=== PATIENT | female | born 1975 | race Caucasian/White ===

== ENCOUNTER 2020-04-05 12:19 | Inpatient (IN) | payer BC ==
--- NOTE | 2020-04-05 12:55 | ED ---
Abdominal Pain HPI - General Chief Complaint: Abdominal Pain Stated Complaint: blood in stool, abd pain Source: patient Mode of arrival: ambulatory Limitations: no limitations - History of Present Illness Initial Comments: 45-year-old female with no past medical history who presents emergency Department with reported bright red blood per rectum. Patient states the symptoms started yesterday morning. She has had upwards of 10 episodes of bloody stools. No history of similar in the past. She will get intense cramping and shortly afterward half a bowel movement which consists only of blood. She denies any rectal pain. Only admits to the lower crampy abdominal pain. No history of colonoscopy or EGD. She is not on any blood thinners. Denies eating any tainted foods. No psychotic systemic symptoms. No recent travel. Denies any fevers or chills. No nausea or vomiting. Denies hematemesis. No history of peptic ulcer disease. No NSAID use. The patient does not drink alcohol. Denies dysuria, hematuria or difficulty voiding. No back or flank pain. No other alleviating dictating modifying factors - Related Data Home Medications Medication Instructions Recorded Confirmed Minivelle 0.1mg Patch 1 patch TRANSDERM Q72H 04/05/20 04/05/20 Multivitamin With Caffine 1 tab PO DAILY 04/05/20 04/05/20 Allergies Allergy/AdvReac Type Severity Reaction Status Date / Time No Known Allergies Allergy Verified 04/05/20 15:02 Review of Systems ROS Statement: Those systems with pertinent positive or pertinent negative responses have been documented in the HPI. ROS Other: All systems not noted in ROS Statement are negative. Past Medical History Past Medical History: No Reported History History of Any Multi-Drug Resistant Organisms: None Reported Past Surgical History: Appendectomy, Hysterectomy Past Psychological History: No Psychological Hx Reported Smoking Status: Current every day smoker Past Alcohol Use History: None Reported Past Drug Use History: None Reported - Past Family History Sister(s) Family Medical History: Coronary Artery Disease (CAD) Additional Family Medical History / Comment(s): heart valve replace, 2 yrs ago General Exam Limitations: no limitations General appearance: alert, in no apparent distress Head exam: Present: atraumatic, normocephalic, normal inspection Eye exam: Present: normal appearance, PERRL, EOMI. Absent: scleral icterus, conjunctival injection, periorbital swelling ENT exam: Present: normal exam, mucous membranes moist Neck exam: Present: normal inspection. Absent: tenderness, meningismus, lymphadenopathy Respiratory exam: Present: normal lung sounds bilaterally. Absent: respiratory distress, wheezes, rales, rhonchi, stridor Cardiovascular Exam: Present: regular rate, normal rhythm, normal heart sounds. Absent: systolic murmur, diastolic murmur, rubs, gallop, clicks GI/Abdominal exam: Present: soft, tenderness (Bilateral lower abdominal quadrants), normal bowel sounds. Absent: distended, guarding, rebound, rigid Rectal exam: Present: normal inspection, normal rectal tone, heme (+) stool, other (Few flecks of bight bloody stool) Extremities exam: Present: normal inspection, full ROM, normal capillary refill. Absent: tenderness, pedal edema, joint swelling, calf tenderness Back exam: Present: normal inspection Neurological exam: Present: alert, oriented X3, CN II-XII intact Psychiatric exam: Present: normal affect, normal mood Skin exam: Present: warm, dry, intact, normal color. Absent: rash Course Vital Signs 04/05/20 04/05/20 04/05/20 12:23 13:00 13:38 Temperature 98.1 F Pulse Rate 71 70 66 Respiratory 18 16 16 Rate Blood Pressure 130/84 130/89 129/77 O2 Sat by Pulse 98 98 98 Oximetry 04/05/20 15:00 Temperature Pulse Rate 68 Respiratory 16 Rate Blood Pressure 129/77 O2 Sat by Pulse 98 Oximetry Medical Decision Making - Medical Decision Making Upon arrival the patient is placed into room 10. A thorough history and physical exam was performed. Patient is placed on continuous pulse ox and cardiac monitoring. Rectal exam is performed which does demonstrate small flecks of bright red blood. I recommended laboratory studies and a CT of the patient's abdomen and pelvis because of reported abdominal pain. Lab studies are remarkable for a hemoglobin of 13.2. Patient remains hemodynamically stable. Urinalysis is positive for small leukocyte esterase with rare bacteria. She is fecal occult blood positive. CT of the patient's abdomen and pelvis does demonstrates nonspecific moderate infectious/inflammatory colitis involving the mid to lower descending colon and proximal sigmoid colon. Blood culture was obtained. The patient was given a dose of Zosyn. I did recommend hospital admission orders from the patient's troponins for which she did agree. I did call discuss the case with Dr. magana accepted admission. I will place GI and consult. Patient remained in stable condition and was transported to the floor - Lab Data Result diagrams: 04/05/20 18:30 04/05/20 13:07 Lab Results 04/05/20 04/05/20 04/05/20 Range/Units 12:55 13:07 13:07 WBC (3.8-10.6) k/uL RBC (3.80-5.40) m/uL Hgb (11.4-16.0) gm/dL Hct (34.0-46.0) % MCV (80.0-100.0) fL MCH (25.0-35.0) pg MCHC (31.0-37.0) g/dL RDW (11.5-15.5) % Plt Count (150-450) k/uL Neutrophils % % Lymphocytes % % Monocytes % % Eosinophils % % Basophils % % Neutrophils # (1.3-7.7) k/uL Lymphocytes # (1.0-4.8) k/uL Monocytes # (0-1.0) k/uL Eosinophils # (0-0.7) k/uL Basophils # (0-0.2) k/uL PT 9.7 (9.0-12.0) sec INR 0.9 (<1.2) APTT 26.4 (22.0-30.0) sec Sodium 140 (137-145) mmol/L Potassium 4.1 (3.5-5.1) mmol/L Chloride 111 H (98-107) mmol/L Carbon Dioxide 24 (22-30) mmol/L Anion Gap 5 mmol/L BUN 9 (7-17) mg/dL Creatinine 0.62 (0.52-1.04) mg/dL Est GFR (CKD-EPI)AfAm >90 (>60 ml/min/1.73 sqM) Est GFR (CKD-EPI)NonAf >90 (>60 ml/min/1.73 sqM) Glucose 92 (74-99) mg/dL Plasma Lactic Acid Monty (0.7-2.0) mmol/L Calcium 9.5 (8.4-10.2) mg/dL Total Bilirubin 0.4 (0.2-1.3) mg/dL AST 28 (14-36) U/L ALT 20 (4-34) U/L Alkaline Phosphatase 61 (38-126) U/L Total Protein 7.0 (6.3-8.2) g/dL Albumin 4.4 (3.5-5.0) g/dL Lipase 84 (23-300) U/L Urine Color Yellow Urine Appearance Cloudy H (Clear) Urine pH 5.5 (5.0-8.0) Ur Specific [place] 1.027 (1.001-1.035) Urine Protein Trace H (Negative) Urine Glucose (UA) Negative (Negative) Urine Ketones Negative (Negative) Urine Blood Trace H (Negative) Urine Nitrite Negative (Negative) Urine Bilirubin Negative (Negative) Urine Urobilinogen <2.0 (<2.0) mg/dL Ur Leukocyte Esterase Small H (Negative) Urine RBC 4 (0-5) /hpf Urine WBC 3 (0-5) /hpf Ur Squamous Epith Cells 4 (0-4) /hpf Urine Bacteria Rare H (None) /hpf Urine Mucus Many H (None) /hpf Stool Occult Blood (Negative) Blood Type Blood Type Confirm Blood Type Recheck Bld Type Recheck Status Antibody Screen Spec Expiration Date 04/05/20 04/05/20 04/05/20 Range/Units 13:07 13:07 13:20 WBC 8.4 (3.8-10.6) k/uL RBC 4.26 (3.80-5.40) m/uL Hgb 13.2 (11.4-16.0) gm/dL Hct 39.8 (34.0-46.0) % MCV 93.4 (80.0-100.0) fL MCH 30.9 (25.0-35.0) pg MCHC 33.1 (31.0-37.0) g/dL RDW 12.4 (11.5-15.5) % Plt Count 327 (150-450) k/uL Neutrophils % 51 % Lymphocytes % 39 % Monocytes % 6 % Eosinophils % 2 % Basophils % 1 % Neutrophils # 4.3 (1.3-7.7) k/uL Lymphocytes # 3.3 (1.0-4.8) k/uL Monocytes # 0.5 (0-1.0) k/uL Eosinophils # 0.2 (0-0.7) k/uL Basophils # 0.1 (0-0.2) k/uL PT (9.0-12.0) sec INR (<1.2) APTT (22.0-30.0) sec Sodium (137-145) mmol/L Potassium (3.5-5.1) mmol/L Chloride (98-107) mmol/L Carbon Dioxide (22-30) mmol/L Anion Gap mmol/L BUN (7-17) mg/dL Creatinine (0.52-1.04) mg/dL Est GFR (CKD-EPI)AfAm (>60 ml/min/1.73 sqM) Est GFR (CKD-EPI)NonAf (>60 ml/min/1.73 sqM) Glucose (74-99) mg/dL Plasma Lactic Acid Monty 0.6 L (0.7-2.0) mmol/L Calcium (8.4-10.2) mg/dL Total Bilirubin (0.2-1.3) mg/dL AST (14-36) U/L ALT (4-34) U/L Alkaline Phosphatase (38-126) U/L Total Protein (6.3-8.2) g/dL Albumin (3.5-5.0) g/dL Lipase (23-300) U/L Urine Color Urine Appearance (Clear) Urine pH (5.0-8.0) Ur Specific [place] (1.001-1.035) Urine Protein (Negative) Urine Glucose (UA) (Negative) Urine Ketones (Negative) Urine Blood (Negative) Urine Nitrite (Negative) Urine Bilirubin (Negative) Urine Urobilinogen (<2.0) mg/dL Ur Leukocyte Esterase (Negative) Urine RBC (0-5) /hpf Urine WBC (0-5) /hpf Ur Squamous Epith Cells (0-4) /hpf Urine Bacteria (None) /hpf Urine Mucus (None) /hpf Stool Occult Blood (Negative) Blood Type O Positive Blood Type Confirm Blood Type Recheck No Previous Record Bld Type Recheck Status CABO Indicated Antibody Screen NEGATIVE Spec Expiration Date 04/08/2020230604/05/20 04/05/20 Range/Units 13:20 14:21 WBC (3.8-10.6) k/uL RBC (3.80-5.40) m/uL Hgb (11.4-16.0) gm/dL Hct (34.0-46.0) % MCV (80.0-100.0) fL MCH (25.0-35.0) pg MCHC (31.0-37.0) g/dL RDW (11.5-15.5) % Plt Count (150-450) k/uL Neutrophils % % Lymphocytes % % Monocytes % % Eosinophils % % Basophils % % Neutrophils # (1.3-7.7) k/uL Lymphocytes # (1.0-4.8) k/uL Monocytes # (0-1.0) k/uL Eosinophils # (0-0.7) k/uL Basophils # (0-0.2) k/uL PT (9.0-12.0) sec INR (<1.2) APTT (22.0-30.0) sec Sodium (137-145) mmol/L Potassium (3.5-5.1) mmol/L Chloride (98-107) mmol/L Carbon Dioxide (22-30) mmol/L Anion Gap mmol/L BUN (7-17) mg/dL Creatinine (0.52-1.04) mg/dL Est GFR (CKD-EPI)AfAm (>60 ml/min/1.73 sqM) Est GFR (CKD-EPI)NonAf (>60 ml/min/1.73 sqM) Glucose (74-99) mg/dL Plasma Lactic Acid Monty (0.7-2.0) mmol/L Calcium (8.4-10.2) mg/dL Total Bilirubin (0.2-1.3) mg/dL AST (14-36) U/L ALT (4-34) U/L Alkaline Phosphatase (38-126) U/L Total Protein (6.3-8.2) g/dL Albumin (3.5-5.0) g/dL Lipase (23-300) U/L Urine Color Urine Appearance (Clear) Urine pH (5.0-8.0) Ur Specific [place] (1.001-1.035) Urine Protein (Negative) Urine Glucose (UA) (Negative) Urine Ketones (Negative) Urine Blood (Negative) Urine Nitrite (Negative) Urine Bilirubin (Negative) Urine Urobilinogen (<2.0) mg/dL Ur Leukocyte Esterase (Negative) Urine RBC (0-5) /hpf Urine WBC (0-5) /hpf Ur Squamous Epith Cells (0-4) /hpf Urine Bacteria (None) /hpf Urine Mucus (None) /hpf Stool Occult Blood Positive H (Negative) Blood Type Blood Type Confirm O Positive Blood Type Recheck Bld Type Recheck Status Antibody Screen Spec Expiration Date - EKG Data EKG Comments: EKG demonstrates normal sinus rhythm with ventricular rate of 68. IA interval 130. QRS is 88. QTC 418. No acute ST segment depressions concerning for ischemic changes Disposition Clinical Impression: Hematochezia, Colitis Disposition: ADMITTED IP TO THIS HOSP Condition: Stable Is patient prescribed a controlled substance at d/c from ED?: No Decision to Admit Reason: Admit from EC Decision Date: 04/05/20 Decision Time: 14:54
[2020-04-05 13:26] LABS: Basophils # (A) 0.1 k/uL (0-0.2); Basophils % (A) 1 %; Eosinophils # (A) 0.2 k/uL (0-0.7); Eosinophils % (A) 2 %; HCT 39.8 % (34.0-46.0); HGB 13.2 gm/dL (11.4-16.0); Lymphocytes # (A) 3.3 k/uL (1.0-4.8); Lymphocytes % (A) 39 %; MCH 30.9 pg (25.0-35.0); MCHC 33.1 g/dL (31.0-37.0); MCV 93.4 fL (80.0-100.0); Mean Platelet Volume 7.3; Monocytes # (A) 0.5 k/uL (0-1.0); Monocytes % (A) 6 %; Neutrophils # (A) 4.3 k/uL (1.3-7.7); Neutrophils % (A) 51 %; Platelet Count 327 k/uL (150-450); RBC 4.26 m/uL (3.80-5.40); RDW 12.4 % (11.5-15.5); WBC 8.4 k/uL (3.8-10.6)
[2020-04-05 13:26] LABS: INR 0.9 (<1.2); Partial Thromboplastin Time 26.4 sec (22.0-30.0); Prothrombin Time 9.7 sec (9.0-12.0)
[2020-04-05 13:32] LABS: ALT 20 U/L (4-34); AST 28 U/L (14-36); African American GFR (CKD) >90 (>60 ml/min/1.73 sqM); Albumin 4.4 g/dL (3.5-5.0); Alkaline Phosphatase 61 U/L (38-126); Anion Gap 5 mmol/L; Blood Urea Nitrogen 9 mg/dL (7-17); Calcium 9.5 mg/dL (8.4-10.2); Carbon Dioxide 24 mmol/L (22-30); Chloride 111 mmol/L (98-107); Glucose 92 mg/dL (74-99); Non-African American GFR(CKD) >90 (>60 ml/min/1.73 sqM); Potassium 4.1 mmol/L (3.5-5.1); Sodium 140 mmol/L (137-145); Total Bilirubin 0.4 mg/dL (0.2-1.3)
--- NOTE | 2020-04-05 14:12 | CT ---
EXAMINATION TYPE: CT abdomen pelvis w con DATE OF EXAM: 04/05/2020 COMPARISON: NONE HISTORY: 45-year-old female Pelvic pain with rectal bleeding. TECHNIQUE: Contiguous axial scanning of the abdomen and pelvis following administration of 100 ml Iso nayla 300 IV contrast. Delayed images through the kidneys and coronal/sagittal reconstructions perform ed. CT DLP: 1052 mGycm Automated exposure control for dose reduction was used. FINDINGS: LUNG BASES: No significant abnormality is appreciated. LIVER/GB: Liver borderline enlarged measuring 17.4 cm. No focal lesion or biliary ductal dilatation. Portal venous system is patent. Gallbladder within normal limits. PANCREAS: No significant abnormality is seen. SPLEEN: No significant abnormality is seen. ADRENALS: No significant abnormality is seen. KIDNEYS: Cortical cysts in the right kidney measuring up to 1.7 cm. Some scattered hypodense lesions in both kidneys are too small fractured CT characterization, likely cysts. Symmetric uptake and excre tion of contrast from both kidneys. LYMPH NODES: No significant abnormality is seen BOWEL: Appendix cannot be visualized. No secondary findings of acute appendicitis. Mild stool burden . Moderately long segment of inflamed colon involving the mid to lower descending colon and proximal sigmoid colon with wall thickening and pericolonic fat stranding, greatest along the proximal sigmoid , or further coronal images 36 through 50. No significant diverticular change. PELVIS: Bladder is collapsed. Uterus surgically absent. Neither ovary clearly identified. There is mi ld pelvic free fluid. No pelvic lymphadenopathy seen. BONES: Right L5 hemisacralization with degenerative disc disease at L4-L5 characterized by large disc . Ligamentum flavum thickening also noted at this level. There is mild bilateral neural foraminal elena nosis here. IMPRESSION: 1. NONSPECIFIC MODERATE INFECTIOUS/INFLAMMATORY COLITIS INVOLVING THE MID TO LOWER DESCENDING COLON A ND PROXIMAL SIGMOID COLON. MILD PELVIC FREE FLUID LIKELY REACTIVE TO THE INFLAMMATION. NO ABSCESS OR FREE AIR. 2. INCIDENTAL RIGHT L5 HEMISACRALIZATION. ACCELERATED, MILD, DEGENERATIVE DISC DISEASE ABOVE AT L4-L5 .
[2020-04-05 14:14] LABS: Appearance,Urine Cloudy (Clear); Bacteria,Urine Rare /hpf; Bilirubin,Urine Negative (Negative); Blood,Urine Trace (Negative); Color,Urine Yellow; Glucose,Urine (UA) Negative (Negative); Ketones,Urine Negative (Negative); Leukocyte Esterase,Urine Small (Negative); Mucus,Urine Many /hpf; Nitrite,Urine Negative (Negative); PH, Urine 5.5 (5.0-8.0); Protein,Urine Trace (Negative); RBC,Urine 4 /hpf (0-5); Specific Gravity,Urine 1.027 (1.001-1.035); Squamous Epithelial Cell,Urine 4 /hpf (0-4); Urobilinogen,Urine <2.0 mg/dL (<2.0); WBC,Urine 3 /hpf (0-5)
[2020-04-05] MEDS ORDERED: NALOXONE 0.4 MG/ML 1 ML VIAL IV PRN (14:52)
[2020-04-05] MEDS: SODIUM CHLORIDE 0.9% 1,000 ML IV SCH (15:35)
[2020-04-05] MEDS ORDERED: ONDANSETRON 4 MG/2 ML VIAL IVP PRN (16:42)
[2020-04-05] MEDS ORDERED: MAG HYDROX/AL HYDROX/SIMETH 30 ML CUP PO PRN (16:42)
[2020-04-05] MEDS ORDERED: CALCIUM CARBONATE 500 MG CHEWABLE PO PRN (16:42)
[2020-04-05] MEDS ORDERED: ACETAMINOPHEN TAB 325 MG TAB PO PRN (16:42)
[2020-04-05] MEDS ORDERED: MELATONIN 3 MG TABLET PO PRN (16:42)
[2020-04-05] MEDS ORDERED: HYDROmorphone 0.5 MG/0.5 ML SYRINGE IVP PRN (16:43)
[2020-04-05] MEDS: PIPERACILLIN-TAZOBACTAM 3.375 GM in SODIUM CHLORIDE 0.9% 100 ML IVPB SCH ×2 (17:21→23:34)
[2020-04-05 18:51] LABS: HCT 36.7 % (34.0-46.0); MCH 31.4 pg (25.0-35.0); MCHC 32.8 g/dL (31.0-37.0); MCV 95.7 fL (80.0-100.0); Mean Platelet Volume 7.1; Platelet Count 283 k/uL (150-450); RBC 3.83 m/uL (3.80-5.40); WBC 8.1 k/uL (3.8-10.6)
--- NOTE | 2020-04-05 22:05 | P.HPIM ---
History of Present Illness H&P Date: 04/05/20 Chief Complaint: bloody stool History of presenting complaint: This is a pleasant 45-year-old patient of Dr. Jeremie Peralta. Patient normally in good health rather active. Yesterday the patient started noticing increasing lower abdominal pain with cramping. Also notices bloody stool. She again had of this morning. Denies any obvious fever and chills. No nausea vomiting. Tired rundown. Since the episodes continue she presented here. Computed tomography scan the ER didn't show second of colitis. Started on IV Zosyn. Put on clear liquids. No prior history of colitis. Review of systems: GEN.: Tired EYES: None HEENT: None NECK: None RESPIRATORY: None CARDIOVASCULAR: None GASTROINTESTINAL: As above GENITOURINARY: None MUSCULOSKELETAL: None LYMPHATICS: None HEMATOLOGICAL: None PSYCHIATRY: None NEUROLOGICAL: None Past medical history to include: Unremarkable Social history: Patient had 3 children at home. Patient works as a [employer]. Smokes about 5-6 cigarettes a day. No alcohol. Physical examination: VITAL SIGNS: 98.1, 71, 18, 130/84, 98% on room air GENERAL: BMI 35.2, sitting up in bed, not in distress. EYES: Pupils equal. Conjunctiva normal. HEENT: External appearance of nose and ears normal, oral cavity grossly normal. NECK: JVD not raised; masses not palpable. HEART: First and second heart sounds are normal; no edema. LUNGS: Respiratory rate normal; clear to auscultation. ABDOMEN: Soft, left lower abdominal tenderness, no guarding rigidity, liver spleen not palpable, no masses palpable. PSYCH: Alert and oriented x3; mood and affect normal. NEUROLOGICAL: Cranial nerves grossly intact; no facial asymmetry, power and sensation grossly intact. LYMPHATICS: No lymph nodes palpable in the axilla and neck INVESTIGATIONS, reviewed in the clinical context: White count 8.4 hemoglobin 13.2 potassium 4.1 creatinine 0.62 EKG tracing personally reviewed by me-normal sinus rhythm Computed tomography scan of the abdomen pelvis-moderately long segment of inflamed colon involving the mid to lower descending colon and proximal sigmoid colon with wall thickening and pericolonic fat stranding. No doubt admitted change. Assessment: -Acute descending colitis, possibly infectious -Chronic nicotine dependence patient cigarette smoker -Obesity BMI 35.2 Plan: Patient started IV Zosyn. We'll add IV Flagyl. Home medications to be continued. IV fluids. We will give the patient clear liquid for now. Repeat labs in the morning. Care was discussed with the patient. Questions were answered. Nicotine patch. Past Medical History Past Medical History: No Reported History History of Any Multi-Drug Resistant Organisms: None Reported Past Surgical History: Appendectomy, Hysterectomy Past Anesthesia/Blood Transfusion Reactions: No Reported Reaction Past Psychological History: No Psychological Hx Reported Smoking Status: Current every day smoker Past Alcohol Use History: None Reported Past Drug Use History: None Reported - Past Family History Sister(s) Family Medical History: Coronary Artery Disease (CAD) Additional Family Medical History / Comment(s): heart valve replace, 2 yrs ago Medications and Allergies Home Medications Medication Instructions Recorded Confirmed Type Min[place] 0.1mg Patch 1 patch TRANSDERM Q72H 04/05/20 04/05/20 History Multivitamin With Caffine 1 tab PO DAILY 04/05/20 04/05/20 History Allergies Allergy/AdvReac Type Severity Reaction Status Date / Time No Known Allergies Allergy Verified 04/05/20 15:02 Physical Exam Vitals: Vital Signs Temp Pulse Pulse Resp BP BP Pulse Ox 04/05/20 20:37 98.2 F 63 18 106/64 97 04/05/20 16:19 98.3 F 58 L 15 134/79 94 L 04/05/20 15:00 68 16 129/77 98 04/05/20 13:38 66 16 129/77 98 04/05/20 13:00 70 16 130/89 98 04/05/20 12:23 98.1 F 71 18 130/84 98 Intake and Output 04/05/20 04/05/20 04/05/20 06:59 14:59 22:59 Other: # Voids 0 # Bowel Movements 0 Weight 81.647 kg 81.647 kg Results CBC & Chem 7: 04/05/20 18:30 04/05/20 13:07 Labs: Abnormal Lab Results - Last 24 Hours (Table) 04/05/20 04/05/20 04/05/20 Range/Units 12:55 13:07 13:07 Chloride 111 H (98-107) mmol/L Plasma Lactic Acid Monty 0.6 L (0.7-2.0) mmol/L Urine Appearance Cloudy H (Clear) Urine Protein Trace H (Negative) Urine Blood Trace H (Negative) Ur Leukocyte Esterase Small H (Negative) Urine Bacteria Rare H (None) /hpf Urine Mucus Many H (None) /hpf Stool Occult Blood (Negative) 04/05/20 Range/Units 14:21 Chloride (98-107) mmol/L Plasma Lactic Acid Monty (0.7-2.0) mmol/L Urine Appearance (Clear) Urine Protein (Negative) Urine Blood (Negative) Ur Leukocyte Esterase (Negative) Urine Bacteria (None) /hpf Urine Mucus (None) /hpf Stool Occult Blood Positive H (Negative) Thrombosis Risk Factor Assmnt - Choose All That Apply Any of the Below Risk Factors Present?: Yes Each Factor Represents 1 point: Age 41-60 years, Oral contraceptives or hormone replacement therapy Other Risk Factors: No Other congenital or acquired thrombophilia - If yes, enter type in comment: No Thrombosis Risk Factor Assessment Total Risk Factor Score: 2 Thrombosis Risk Factor Assessment Level: Low Risk
[2020-04-06 00:08] LABS: HCT 37.1 % (34.0-46.0); HGB 12.2 gm/dL (11.4-16.0); MCH 31.2 pg (25.0-35.0); MCHC 32.9 g/dL (31.0-37.0); MCV 94.9 fL (80.0-100.0); Mean Platelet Volume 7.3; Platelet Count 283 k/uL (150-450); RDW 12.4 % (11.5-15.5); WBC 9.8 k/uL (3.8-10.6)
[2020-04-06 05:11] LABS: Basophils % (A) 1 %; Eosinophils # (A) 0.2 k/uL (0-0.7); Eosinophils % (A) 2 %; HCT 36.8 % (34.0-46.0); HGB 12.1 gm/dL (11.4-16.0); Lymphocytes # (A) 2.8 k/uL (1.0-4.8); Lymphocytes % (A) 39 %; MCHC 32.7 g/dL (31.0-37.0); MCV 94.6 fL (80.0-100.0); Mean Platelet Volume 7.2; Monocytes # (A) 0.4 k/uL (0-1.0); Monocytes % (A) 6 %; Neutrophils # (A) 3.7 k/uL (1.3-7.7); Neutrophils % (A) 51 %; Platelet Count 290 k/uL (150-450); RBC 3.89 m/uL (3.80-5.40); RDW 11.8 % (11.5-15.5); WBC 7.1 k/uL (3.8-10.6)
[2020-04-06] MEDS: SODIUM CHLORIDE 0.9% 1,000 ML IV SCH ×2 (06:16→15:20)
[2020-04-06] MEDS: PIPERACILLIN-TAZOBACTAM 3.375 GM in SODIUM CHLORIDE 0.9% 100 ML IVPB SCH ×3 (08:37→23:15)
[2020-04-06 10:11] LABS: African American GFR (CKD) 120.4 (60.0-200.0); Anion Gap 8.1 mmol/L (4.00-12.00); BUN/Creat Ratio 11.43 Ratio (12.00-20.00); Calcium 8.5 mg/dL (8.7-10.3); Carbon Dioxide 22.9 mmol/L (21.6-31.8); Non-African American GFR(CKD) 103.9 (60.0-200.0); Potassium 4.1 mmol/L (3.5-5.5)
[2020-04-06 17:14] VITALS: RESP 16
[2020-04-06] MEDS ORDERED: DICYCLOMINE 20 MG TAB PO PRN (21:27)
--- NOTE | 2020-04-06 21:37 | P.CONS ---
History of Present Illness - Reason for Consult Consult date: 04/06/20 colitis Requesting physician: Salvador Garcia - Chief Complaint Abdominal pain, diarrhea, blood per rectum - History of Present Illness 45-year-old female with a medical history significant for tobacco abuse and prior hysterectomy and appendectomy who presented to the hospital due to complaints of diarrhea, abdominal pain and blood per rectum. The patient reports multiple episodes of loose watery stool and noting bright red blood per rectum. She reports approximately 10 episodes. She reports abdominal cramping in association with her bowel movements. She denies any perirectal pain. She denies any similar prior episodes. She denies any new medications, sick conta cts or other triggers. The patient takes ibuprofen approximately 2 times per week but denies anyanticoagulation therapy or use of other NSAIDs. No prior endoscopy in the past. No family history of colon cancer reported. She presented to the hospital where she was found to have a WBC 7.1, hemoglobin 12.1 and platelet count of 290,000 with stool testing positive for occult blood. Computed tomography scan of the abdomen was significant for colitis involving the distal descending colon and sigmoid. Currently she is seen lying in bed reporting no further episodes of bleeding with improvement in her abdominal pain. Review of Systems REVIEW OF SYSTEMS: CONSTITUTIONAL: Denies any fevers, chills, weight change or fatigue. CARDIOVASCULAR: Denies any chest pain, palpitations high or low blood pressures RESPIRATORY: Denies any shortness of breath, hemoptysis or cough. GENITOURINARY: No dysuria or hematuria. MUSCULOSKELETAL: No weakness reported. SKIN: Denies any new rashes or lesions, jaundice or pallor. PSYCHIATRIC: Denies any depression or anxiety. NEUROLOGY: Denies headache, denies any new focal deficits. EARS/NOSE/THROAT: No recent hearing change, congestion, nasal discharge or sore throat. EYES: No pain in eyes, discharge or change in vision. GASTROINTESTINAL: As per HPI. Past Medical History Past Medical History: No Reported History History of Any Multi-Drug Resistant Organisms: None Reported Past Surgical History: Appendectomy, Hysterectomy Past Anesthesia/Blood Transfusion Reactions: No Reported Reaction Past Psychological History: No Psychological Hx Reported Smoking Status: Current every day smoker Past Alcohol Use History: None Reported Past Drug Use History: None Reported - Past Family History Sister(s) Family Medical History: Coronary Artery Disease (CAD) Additional Family Medical History / Comment(s): heart valve replace, 2 yrs ago Medications and Allergies Home Medications Medication Instructions Recorded Confirmed Type Minivelle 0.1mg Patch 1 patch TRANSDERM Q72H 04/05/20 04/05/20 History Multivitamin With Caffine 1 tab PO DAILY 04/05/20 04/05/20 History Allergies Allergy/AdvReac Type Severity Reaction Status Date / Time No Known Allergies Allergy Verified 04/05/20 15:02 Physical Exam Vitals: Vital Signs Temp Pulse Pulse Resp BP BP Pulse Ox 04/06/20 05:22 97.9 F 65 16 110/72 97 04/05/20 22:32 63 18 04/05/20 20:37 98.2 F 63 18 106/64 97 04/05/20 16:19 98.3 F 58 L 15 134/79 94 L 04/05/20 15:00 68 16 129/77 98 Intake and Output 04/05/20 04/06/20 04/06/20 22:59 06:59 14:59 Intake Total 300 1280 Balance 300 1280 Intake: Intake, IV Titration 300 800 Amount Piperacillin-Tazobactam 3 100 .375 gm In Sodium Chloride 0.9% 100 ml @ 25 mls/hr IVPB Q8HR [facility] Rx# :[id number] Sodium Chloride 0.9% 1, 200 800 000 ml @ 100 mls/hr IV . Q10H [facility] Rx#:[id number] Oral 480 Other: Voiding Method Toilet # Voids 0 0 # Bowel Movements 0 0 Weight 81.647 kg On physical examination, patient appears comfortable in no apparent distress. HEAD: Normocephalic, atraumatic. EYES: No scleral icterus. No conjunctival injection. MOUTH: No lesions, tongue midline. NECK: Trachea midline, no gross abnormalities. CHEST: Clear to auscultation with no wheezing or rhonchi appreciated. HEART: Regular rate and rhythm. ABDOMEN: Soft, obese and mildly tender to palpation. Bowel sounds are positive. No organomegaly. No guarding or rigidity. EXTREMITIES: No pedal edema. SKIN: No rashes, no jaundice. NEUROLOGIC: Alert and oriented x3. No focal deficits. Results CBC & Chem 7: 04/06/20 04:45 04/06/20 04:45 Labs: Abnormal Lab Results - Last 24 Hours (Table) 04/05/20 04/06/20 Range/Units 14:21 04:45 BUN 8.0 L (9.0-27.0) mg/dL BUN/Creatinine Ratio 11.43 L (12.00-20.00) Ratio Calcium 8.5 L (8.7-10.3) mg/dL Stool Occult Blood Positive H (Negative) CT scan - abdomen: report reviewed (computed tomography scan of the abdomen with findings ofcolitis involving the distal descending colon and sigmoid) Assessment and Plan (1) Colitis Narrative/Plan: 45-year-old female with medical history significant for tobacco abuse who presented to the hospital with complaints of abdominal pain, diarrhea and blood per rectum. She reports multiple episodes of loose bowel movements and associated blood per rectum. She had associated cramping lower abdominal pain. Hemoglobin stable at12.1. No prior episodes of similar complaints, new medications or sick contacts. Computed tomography scan of the abdomen performed in evaluation showed inflammation and colitis of the distal descending colon and sigmoid. Unclear etiology with suspicion for infectious colitis, or possibly ischemia in the setting of tobacco abuse with inflammatory process less likely given the acuity of symptoms. Current Visit: Yes Status: Acute Code(s): K52.9 - NONINFECTIVE GASTROENTERITIS AND COLITIS, UNSPECIFIED SNOMED Code(s): 49440611 (2) Hematochezia Current Visit: Yes Status: Acute Code(s): K92.1 - MELENA SNOMED Code(s): 260141995 Plan: supportive care Continue to monitor hemoglobin and hematocrit and transfuse as needed Continue to monitor stool output Bentyl as needed for abdominal pain and cramping Continue broad-spectrum antibiotic therapy Tobacco cessation Recommendation is for colonoscopy for evaluation in 4-6 weeks after discharge, pending continued improvement in symptoms and clinical course Thank you for allowing us to participate in the care of the patient we will continue to follow
--- NOTE | 2020-04-06 22:37 | P.PN ---
Progress Note - Text Progress Note Date: 04/06/20 History of presenting complaint: This is a pleasant 45-year-old patient of Dr. Jeremie Peralta. Patient normally in good health rather active. Yesterday the patient started noticing increasing lower abdominal pain with cramping. Also notices bloody stool. She again had of this morning. Denies any obvious fever and chills. No nausea vomiting. Tired rundown. Since the episodes continue she presented here. Computed tomography scan the ER didn't show second of colitis. Started on IV Zosyn. Put on clear liquids. No prior history of colitis. Today-feeling a bit better. No further bowel movement. Abdominal pain is improved. Did tolerate clear liquids. No fever. Review of systems: Was done for constitutional, cardiovascular, GI, pulmonary. relevant finding as above Active Medications Acetaminophen (Acetaminophen Tab 325 Mg Tab) 650 mg PO Q6HR PRN PRN Reason: Mild Pain or Fever > 100.5 Last Admin: 04/06/20 08:40 Dose: 650 mg Documented by: Al Hydroxide/Mg Hydroxide (Mag Hydrox/Al Hydrox/Simeth 30 Ml Cup) 15 ml PO Q6HR PRN PRN Reason: Indigestion Calcium Carbonate/Glycine (Calcium Carbonate 500 Mg Chewable) 1,000 mg PO Q4HR PRN PRN Reason: Dyspepsia Dicyclomine HCl (Dicyclomine 20 Mg Tab) 20 mg PO QID PRN PRN Reason: GI Upset Hydromorphone HCl (Hydromorphone 0.5 Mg/0.5 Ml Syringe) 0.5 mg IVP Q4HR PRN PRN Reason: Pain Piperacillin Sod/Tazobactam (Sod 3.375 gm/ Sodium Chloride) 100 mls @ 25 mls/hr IVPB Q8HR [facility] Last Admin: 04/06/20 16:40 Dose: 25 mls/hr Documented by: Sodium Chloride (Saline 0.9%) 1,000 mls @ 100 mls/hr IV .Q10H [facility] Last Admin: 04/06/20 15:20 Dose: 100 mls/hr Documented by: Melatonin (Melatonin 3 Mg Tablet) 3 mg PO HS PRN PRN Reason: Insomnia Naloxone HCl (Naloxone 0.4 Mg/Ml 1 Ml Vial) 0.2 mg IV Q2M PRN PRN Reason: Opioid Reversal Ondansetron HCl (Ondansetron 4 Mg/2 Ml Vial) 4 mg IVP Q8HR PRN PRN Reason: Nausea And Vomiting Physical examination: VITAL SIGNS: 98.2, 66, 17, 117/63, 97% room air GENERAL: BMI 35.2, sitting up in a chair, more comfortable. EYES: Pupils equal. Conjunctiva normal. HEENT: External appearance of nose and ears normal, oral cavity grossly normal. NECK: JVD not raised; masses not palpable. HEART: First and second heart sounds are normal; no edema. LUNGS: Respiratory rate normal; clear to auscultation. ABDOMEN: Soft, decreased left lower abdominal tenderness, no guarding rigidity, liver spleen not palpable, no masses palpable. PSYCH: Alert and oriented x3; mood and affect normal. INVESTIGATIONS, reviewed in the clinical context: White count 7.1 potassium 4.1 Previous testing White count 8.4 hemoglobin 13.2 potassium 4.1 creatinine 0.62 EKG tracing personally reviewed by me-normal sinus rhythm Computed tomography scan of the abdomen pelvis-moderately long segment of inflamed colon involving the mid to lower descending colon and proximal sigmoid colon with wall thickening and pericolonic fat stranding. No doubt admitted change. Assessment: -Acute descending colitis, possibly infectious-improving -Chronic nicotine dependence patient cigarette smoker -Obesity BMI 35.2 Plan: Continue antibiotics. Advance diet. Encouraged patient to ambulate. Follow
[2020-04-07] MEDS: SODIUM CHLORIDE 0.9% 1,000 ML IV SCH (03:59)
[2020-04-07 04:24] LABS: Basophils % (A) 1 %; Eosinophils # (A) 0.2 k/uL (0-0.7); Eosinophils % (A) 2 %; HCT 35.3 % (34.0-46.0); HGB 11.3 gm/dL (11.4-16.0); Lymphocytes # (A) 2.7 k/uL (1.0-4.8); Lymphocytes % (A) 40 %; MCH 30.3 pg (25.0-35.0); MCHC 31.9 g/dL (31.0-37.0); Mean Platelet Volume 7.1; Monocytes # (A) 0.4 k/uL (0-1.0); Monocytes % (A) 6 %; Neutrophils # (A) 3.4 k/uL (1.3-7.7); Neutrophils % (A) 50 %; Platelet Count 289 k/uL (150-450); RBC 3.72 m/uL (3.80-5.40); RDW 12.3 % (11.5-15.5); WBC 6.8 k/uL (3.8-10.6)
[2020-04-07 05:12] VITALS: BP 115/73; PULSE 61; TEMP 97.7
[2020-04-07] MEDS: PIPERACILLIN-TAZOBACTAM 3.375 GM in SODIUM CHLORIDE 0.9% 100 ML IVPB SCH (09:36)
--- NOTE | 2020-04-07 12:31 | P.PN ---
Subjective Progress Note Date: 04/07/20 Principal diagnosis: Colitis Patient was seen and examined at the bedside the patient is a 38 rest and discharge orders have been placed. The patient denies any further episodes of diarrhea or blood per rectum since admission. She states she tolerated regular diet. Denies any abdominal pain, nausea, or vomiting. She will be discharged home on antibiotics. She will follow-up with gastroenterology as an outpatient and schedule for outpatient colonoscopy in 4-6 weeks. Objective - Vital Signs Vital signs: Vital Signs Temp 97.7 F 04/07/20 05:11 Pulse 61 04/07/20 05:11 Resp 16 04/07/20 05:11 BP 115/73 04/07/20 05:11 Pulse Ox 96 04/07/20 05:11 Intake & Output 04/06/20 04/07/20 04/07/20 18:59 06:59 18:59 Intake Total 1520 600 Balance 1520 600 Intake: Intake, IV Titration 800 Amount Sodium Chloride 0.9% 1, 800 000 ml @ 100 mls/hr IV . Q10H [facility] Rx#:[id number] Oral 720 600 Other: Voiding Method Toilet # Voids 1 - Exam General appearance: The patient is alert, oriented, in no acute distress. HET: Head is normocephalic and atraumatic. Anterior pain. Sclera anicteric. Neck: Supple Abdomen: Soft, nontender, nondistended with bowel sounds. No guarding or rigidity. Extremities: Normal skin color and turgor. Neurological: No focal deficits. Alert and oriented 3. - Labs CBC & Chem 7: 04/07/20 03:23 04/06/20 04:45 Labs: Abnormal Lab Results - Last 24 Hours (Table) 04/07/20 Range/Units 03:23 RBC 3.72 L (3.80-5.40) m/uL Hgb 11.3 L (11.4-16.0) gm/dL Microbiology - Last 24 Hours (Table) 04/05/20 15:45 Blood Culture - Preliminary Blood No Growth after 24 hours Assessment and Plan (1) Colitis Narrative/Plan: 45-year-old female with medical history significant for tobacco abuse who presented to the hospital with complaints of abdominal pain, diarrhea and blood per rectum. She reports multiple episodes of loose bowel movements and associated blood per rectum. She had associated cramping lower abdominal pain. Hemoglobin stable at12.1. No prior episodes of similar complaints, new medications or sick contacts. Computed tomography scan of the abdomen performed in evaluation showed inflammation and colitis of the distal descending colon and sigmoid. Unclear etiology with suspicion for infectious colitis, or possibly ischemia in the setting of tobacco abuse with inflammatory process less likely given the acuity of symptoms. ( Status: Acute Code(s): K52.9 - NONINFECTIVE GASTROENTERITIS AND COLITIS, UNSPECIFIED SNOMED Code(s): 22865599 (2) Hematochezia Status: Acute Code(s): K92.1 - MELENA SNOMED Code(s): 165665996 Plan: supportive care Continue to monitor hemoglobin and hematocrit and transfuse as needed Continue to monitor stool output Bentyl as needed for abdominal pain and cramping Continue broad-spectrum antibiotic therapy Tobacco cessation Recommendation is for colonoscopy for evaluation in 4-6 weeks after discharge, pending continued improvement in symptoms and clinical course Thank you for allowing us to participate in the care of the patient we will continue to follow The above dictated assessment and findings were discussed with Dr. Medley. The impression and plan of care have been directed as dictated.
--- NOTE | 2020-04-07 22:06 | P.DS ---
Providers Date of admission: 04/07/20 08:32 Expected date of discharge: 04/07/20 Attending physician: Salvador Garcia Consults: 04/05/20 14:52 Consult Physician Urgent Consulting Provider: Gregory Medley Reason/Comments: acute colitis, acute hematochezia Do you want consulting provider notified?: Yes Primary care physician: Jeremie Fabian [facility] Course: History of presenting complaint: This is a pleasant 45-year-old patient of Dr. Jeremie Peralta. Patient normally in good health rather active. Yesterday the patient started noticing increasing lower abdominal pain with cramping. Also notices bloody stool. She again had of this morning. Denies any obvious fever and chills. No nausea vomiting. Tired rundown. Since the episodes continue she presented here. Computed tomography scan the ER didn't show second of colitis. Started on IV Zosyn. Put on clear liquids. No prior history of colitis. Admitted with a diagnosis of infectious colitis. Started on IV Zosyn. Today-tolerating a soft bland diet. No further abdominal pain. No bowel movement. Feeling well. Care was discussed with the patient question also. Being discharged on Augmentin and soft bland diet Consultation: Dr. Jane from GI Physical examination: VITAL SIGNS: 97.7, 61, 16, 150/73, 96% room air GENERAL: Sitting up, comfortable. EYES: Pupils equal. Conjunctiva normal. HEENT: External appearance of nose and ears normal, oral cavity grossly normal. NECK: JVD not raised; masses not palpable. HEART: First and second heart sounds are normal; no edema. LUNGS: Respiratory rate normal; clear to auscultation. ABDOMEN: Soft, no abdominal tenderness, no guarding rigidity, liver spleen not palpable, no masses palpable. PSYCH: Alert and oriented x3; mood and affect normal. INVESTIGATIONS, reviewed in the clinical context: White count 6.8 hemoglobin 11.3 Previous testing White count 8.4 hemoglobin 13.2 potassium 4.1 creatinine 0.62 EKG tracing personally reviewed by me-normal sinus rhythm Computed tomography scan of the abdomen pelvis-moderately long segment of inflamed colon involving the mid to lower descending colon and proximal sigmoid colon with wall thickening and pericolonic fat stranding. No doubt admitted change. Assessment: -Acute descending colitis, possibly infectious POA -Chronic nicotine dependence patient cigarette smoker -Obesity BMI 35.2 Disposition: Home Patient Condition at Discharge: Stable Plan - Discharge Summary Discharge Rx Participant: No New Discharge Prescriptions: New Amoxicillin/Potassium Clav [Augmentin 875-125 Tablet] 1 tab PO Q12HR #14 tab Continue Multivitamin With Caffine 1 tab PO DAILY Minivelle 0.1mg Patch 1 patch TRANSDERM Q72H Discharge Medication List Minivelle 0.1mg Patch 1 patch TRANSDERM Q72H 04/05/20 [History] Multivitamin With Caffine 1 tab PO DAILY 04/05/20 [History] Amoxicillin/Potassium Clav [Augmentin 875-125 Tablet] 1 tab PO Q12HR #14 tab 04/07/20 [Rx] Follow up Appointment(s)/Referral(s): Jeremie Peralta MD [Primary Care Provider] - 04/08/20 4:00 pm Gregory Medley MD [STAFF PHYSICIAN] - 04/28/20 1:30 pm (3-4 weeks, will schedule OP colonoscopy in 4-6 weeks) Patient Instructions/Handouts: Rectal Bleeding (DC), Colitis (ED) Activity/Diet/Wound Care/Special Instructions: soft bland diet Discharge Disposition: HOME SELF-CARE
== END 2020-04-07 11:25 | disposition home or self-care (01) | DRG 392 ==
LOC: EC 12:19 → 6NMEDSUR 14:52 → OBSVTOIN 04-07 08:32
PROVIDERS: ADMIT Hospitalist; ATTEND Hospitalist
DX: A09 Infectious gastroenteritis and colitis, unspecified (principal); K92.1 Melena; F17.210 Nicotine dependence, cigarettes, uncomplicated; E66.9 Obesity, unspecified; Z71.6 Tobacco abuse counseling; Z68.35 Body mass index [BMI] 35.0-35.9, adult; Z79.899 Other long term (current) drug therapy; Z90.49 Acquired absence of other specified parts of digestive tract; Z90.710 Acquired absence of both cervix and uterus; Z82.49 Family history of ischemic heart disease and other diseases of the circulatory system
CPT/HCPCS: 36415; 74177; 80048; 80053; 81001; 82272; 83605; 83690; 84145; 85025; 85027; 85610; 85730; 86850; 86900; 86901; 87040; 93005; 99285

== ENCOUNTER 2020-05-28 07:34 | Day surgery (SDC) | payer BC ==
[~2020-05-28 07:34] MED LIST: LACTATED RINGERS 1,000 ML IV SCH; LIDOCAINE 1% (10MG/ML) FOR IV START INTRADERMA PRN
[2020-05-28 08:09] VITALS: TEMP 97.7
[2020-05-28] MEDS ORDERED: PROPOFOL 10 MG/ML 20 ML VIAL IV ONE (08:39)
--- NOTE | 2020-05-28 08:55 | P.PCN ---
Date of Procedure: 05/28/20 Procedure(s) Performed: BRIEF HISTORY: Patient is a 45-year-old pleasant white female scheduled for an elective colonoscopy as a part of evaluation of recent episode of acute severe colitis 2 months ago for which she was hospitalized and treated with antibiotics. She continues to have intermittent diarrhea. PROCEDURE PERFORMED: Colonoscopy. PREOPERATIVE DIAGNOSIS: Episode of acute severe colitis/intermittent diarrhea. IV sedation per Anesthesia. PROCEDURE: After informed consent was obtained, the patient, was brought into the endoscopy unit. IV sedation was administered by Anesthesia under continuous monitoring. Digital rectal examination was normal. Initially the Olympus CF-160 flexible video colonoscope was then inserted in the rectum, gradually advanced into the cecum without any difficulty. Careful examination was performed as the scope was gradually being withdrawn. Ileocecal valve and the appendiceal orifice were visualized and appeared normal. Prep was excellent. Mucosa of the cecum, ascending colon, transverse colon, descending colon, sigmoid colon, and rectum appeared normal. Retroflexion was performed in the rectum and no lesions were seen. The patient tolerated the procedure well. IMPRESSION: Normal-appearing colon from rectum to cecum no evidence of colitis or colorectal neoplasia . RECOMMENDATIONS: Findings of this examination were discussed with the patient as well as her family. She was advised to have a repeat screening colonoscopy in 10 years.
[2020-05-28 09:14] VITALS: BP 125/83; PULSE 71; RESP 16
== END 2020-05-28 09:45 | disposition home or self-care (01) ==
LOC: ORWHC2ENDO 07:34
PROVIDERS: ATTEND Internal Medicine Gastroenterology
DX: K52.9 Noninfective gastroenteritis and colitis, unspecified (principal); Z79.890 Hormone replacement therapy; F17.210 Nicotine dependence, cigarettes, uncomplicated; Z90.710 Acquired absence of both cervix and uterus; Z79.899 Other long term (current) drug therapy
CPT/HCPCS: 45378; J2704